=== PATIENT | female | born 1985 | race Hispanic/Latino ===

== ENCOUNTER 2023-06-09 11:10 | Emergency (ER) | payer BC ==
[2023-06-09] MEDS ORDERED: HYDROcodone/Acetaminophen 10/325 mg Tablet ONE (11:53)
[2023-06-09 12:31] LABS: #Basophils 0.1 thou/uL (0.0-0.2); #Eosinphils 0.2 thou/uL (0.0-0.7); #Monocytes 0.8 thou/uL (0.11-0.59); %Basophils 0.7 % (0.0-1.0); %Eosinophils 1.9 % (0.0-10.0); %Lymphocytes 20.8 % (21.0-51.0); %Monocytes 8.5 % (0.0-10.0); %Neutrophils 67.9 % (42.0-75.0); Hematocrit 38.3 % (36.0-47.0); Hemoglobin 13.3 g/dL (12.0-16.0); Mean Corpuscular HGB CONC 34.7 g/dL (32.0-36.0); Mean Corpuscular Hemoglobin 30.3 pg (27.0-31.0); Mean Corpuscular Volume 87.2 fl (78.0-98.0); Mean Platelet Volume 9.8 fL (7.4-10.4); Platelet Count 292 10x3/uL (130-400); RBC Distribution Width 12.4 % (11.5-14.5); Red Blood Cell (RBC) Count 4.39 mill/uL (4.20-5.40); White Blood Cell (WBC) Count 8.9 10x3/uL (4.8-10.8)
[2023-06-09 12:44] LABS: BHCG - Serum Negative (NEGATIVE)
[2023-06-09 12:45] LABS: Pregs Control Background? CLEAR/WHITE (CLR/WHITE); Pregs Control Bar Appear? YES (CONTROL BAR)
[2023-06-09 13:18] LABS: ALT (SGPT) 9 U/L (8-55); AST (SGOT) 12 U/L (5-34); Albumin 4.1 g/dL (3.5-5.0); Alkaline Phosphatase 57 U/L (40-110); Anion Gap 8 mmol/L (10-20); BUN (Urea Nitrogen) 6 mg/dL (7.0-18.7); Bilirubin, Total 0.7 mg/dL (0.2-1.2); Calc. Creatinine Clearance 0 mL/min (70-130); Calcium 9.3 mg/dL (7.6-10.4); Carbon Dioxide 24 mmol/L (22-29); Chloride 106 mmol/L (98-107); Estimated GFR 99; Globulin 2.9 g/dL (2.4-3.5); Glucose 99 mg/dL (70-105); Lipase 10 U/L (8-78); Sodium 134 mmol/L (136-145)
== END 2023-06-09 14:53 | disposition home or self-care (01) ==
LOC: ERS 11:10
DX: K80.20 Calculus of gallbladder without cholecystitis without obstruction (principal); R19.7 Diarrhea, unspecified
CPT/HCPCS: 36415; 76705; 80053; 83690; 84703; 85025

== ENCOUNTER 2023-06-10 15:18 | Observation (INO) | payer BC ==
[2023-06-10 15:48] LABS: #Basophils 0.1 thou/uL (0.0-0.2); #Eosinphils 0.2 thou/uL (0.0-0.7); #Monocytes 0.7 thou/uL (0.11-0.59); #Neutrophils 5.9 thou/uL (1.40-6.50); %Basophils 0.8 % (0.0-1.0); %Eosinophils 2.9 % (0.0-10.0); %Lymphocytes 17.4 % (21.0-51.0); %Monocytes 8.2 % (0.0-10.0); %Neutrophils 70.5 % (42.0-75.0); Hematocrit 41.4 % (36.0-47.0); Hemoglobin 14.3 g/dL (12.0-16.0); Mean Corpuscular HGB CONC 34.5 g/dL (32.0-36.0); Mean Corpuscular Hemoglobin 29.9 pg (27.0-31.0); Mean Corpuscular Volume 86.4 fl (78.0-98.0); Mean Platelet Volume 10.1 fL (7.4-10.4); Platelet Count 342 10x3/uL (130-400); RBC Distribution Width 12.3 % (11.5-14.5); Red Blood Cell (RBC) Count 4.79 mill/uL (4.20-5.40); White Blood Cell (WBC) Count 8.3 10x3/uL (4.8-10.8)
[2023-06-10] MEDS ORDERED: Morphine 4 MG/ML VIAL ONE ×2 (15:55→18:45)
[2023-06-10] MEDS ORDERED: Ondansetron PF 4 MG/2 ML Vial ONE (15:55)
[2023-06-10 16:04] LABS: BHCG - Serum Negative (NEGATIVE); Pregs Control Background? CLEAR/WHITE (CLR/WHITE); Pregs Control Bar Appear? YES (CONTROL BAR)
[2023-06-10 16:11] LABS: ALT (SGPT) 78 U/L (8-55); AST (SGOT) 105 U/L (5-34); Albumin 4.4 g/dL (3.5-5.0); Alkaline Phosphatase 136 U/L (40-110); Anion Gap 15 mmol/L (10-20); BUN (Urea Nitrogen) 5 mg/dL (7.0-18.7); Bilirubin, Total 1.8 mg/dL (0.2-1.2); Calc. Creatinine Clearance 0 mL/min (70-130); Calcium 9.7 mg/dL (7.8-10.44); Carbon Dioxide 23 mmol/L (22-29); Chloride 104 mmol/L (98-107); Estimated GFR 99; Globulin 3.3 g/dL (2.4-3.5); Glucose 106 mg/dL (70-105); Lipase 21 U/L (8-78); Potassium 3.8 mmol/L (3.5-5.1); Protein, Total 7.7 g/dL (6.0-8.3); Sodium 138 mmol/L (136-145)
[2023-06-10] MEDS ORDERED: diphenhydrAMINE 50 MG/ML VIAL ONE (20:01)
[2023-06-10 20:35] VITALS: BMI 38.6
[2023-06-10] MEDS ORDERED: Morphine 4 MG/ML VIAL SLOW IVP PRN (20:47)
[2023-06-10] MEDS ORDERED: Ondansetron ODT 4 MG TAB SL PRN (21:00)
[2023-06-10] MEDS ORDERED: Ondansetron PF 4 MG/2 ML Vial IVP PRN (21:00)
[2023-06-10] MEDS ORDERED: Sodium Chloride 0.9% 1,000 ML IV SCH (21:00)
[2023-06-10] MEDS ORDERED: diphenhydrAMINE 50 MG CAP PO PRN (23:46)
[2023-06-10] MEDS: fentaNYL 50 mcg/mL 1 mL Vial SLOW IVP PRN (23:55)
[2023-06-11] MEDS: fentaNYL 50 mcg/mL 1 mL Vial SLOW IVP PRN ×5 (01:54→10:16)
[2023-06-11] MEDS ORDERED: Promethazine HCl 25 MG/ML VIAL IM PRN (06:52)
[2023-06-11] MEDS ORDERED: Ondansetron PF 4 MG/2 ML Vial IVP PRN (06:52)
[2023-06-11] MEDS ORDERED: Morphine 4 MG/ML VIAL SLOW IVP PRN (06:52)
[2023-06-11] MEDS ORDERED: Morphine 2 MG/ML VIAL SLOW IVP PRN (06:52)
[2023-06-11 07:34] LABS: #Basophils 0.1 thou/uL (0.0-0.2); #Monocytes 0.7 thou/uL (0.11-0.59); %Basophils 0.6 % (0.0-1.0); %Eosinophils 0.5 % (0.0-10.0); %Lymphocytes 8.3 % (21.0-51.0); %Monocytes 8.5 % (0.0-10.0); %Neutrophils 81.8 % (42.0-75.0); Hematocrit 43.7 % (36.0-47.0); Hemoglobin 14.3 g/dL (12.0-16.0); Mean Corpuscular HGB CONC 32.7 g/dL (32.0-36.0); Mean Corpuscular Hemoglobin 29.5 pg (27.0-31.0); Mean Platelet Volume 9.9 fL (7.4-10.4); Platelet Count 322 10x3/uL (130-400); RBC Distribution Width 12.3 % (11.5-14.5); Red Blood Cell (RBC) Count 4.85 mill/uL (4.20-5.40); White Blood Cell (WBC) Count 8.6 10x3/uL (4.8-10.8)
[2023-06-11 07:58] LABS: Mean Corpuscular Volume 90.1 fl (78.0-98.0)
[2023-06-11] MEDS: Famotidine/PF 20 mg/2ml Vial SLOW IVP SCH ×2 (08:09→20:15)
[2023-06-11] MEDS: Sodium Chloride 0.9% 1,000 ML IV SCH ×2 (08:12→18:35)
[2023-06-11] MEDS: Ketorolac Tromethamine 30 MG/ML VIAL IVP SCH ×3 (12:41→23:46)
[2023-06-11] MEDS: metroNIDAZOLE 500 MG in Premix Bag 1 BAG IVPB SCH ×2 (12:42→20:15)
[2023-06-11] MEDS ORDERED: Bupivacaine PF 0.5% 30 ML VIAL ONE ×2 (13:10→15:03)
[2023-06-11] MEDS ORDERED: Iopamidol 30 ML ONE (13:10)
[2023-06-11] MEDS ORDERED: EPINEPHrine 1 MG/ML AMP ONE ×2 (13:10→15:03)
[2023-06-11] MEDS ORDERED: fentaNYL PF 100 MCG/2 ML SYRINGE ONE (13:32)
[2023-06-11] MEDS ORDERED: SUGAMMADEX SODIUM 200 MG/2 ML VIAL ONE (13:37)
[2023-06-11] MEDS ORDERED: Sevoflurane 250 ML INH ANEST BOTTLE ONE ×2 (13:37→14:27)
[2023-06-11] MEDS ORDERED: Rocuronium Bromide 10 MG/ML (10ML VIAL) ONE (13:48)
[2023-06-11] MEDS ORDERED: PROPOFOL 200 MG/20 ML VIAL ONE (13:48)
[2023-06-11] MEDS ORDERED: Ketorolac Tromethamine 30 MG/ML VIAL ONE (13:48)
[2023-06-11] MEDS ORDERED: Ondansetron PF 4 MG/2 ML Vial ONE (13:48)
[2023-06-11] MEDS ORDERED: Dexamethasone 20 MG/5 ML VIAL ONE (13:48)
[2023-06-11] MEDS ORDERED: fentaNYL 50 mcg/mL 1 mL Vial ONE ×2 (16:18→16:43)
[2023-06-11 18:54] LABS: ALT (SGPT) 174 U/L (8-55); AST (SGOT) 137 U/L (5-34); Alkaline Phosphatase 177 U/L (40-110); Anion Gap 18 mmol/L (10-20); BUN (Urea Nitrogen) 4 mg/dL (7.0-18.7); Bilirubin, Total 5.4 mg/dL (0.2-1.2); Calc. Creatinine Clearance 168 mL/min (70-130); Calcium 9.2 mg/dL (7.8-10.44); Carbon Dioxide 18 mmol/L (22-29); Chloride 105 mmol/L (98-107); Estimated GFR 115; Globulin 3.3 g/dL (2.4-3.5); Glucose 116 mg/dL (70-105); Potassium 4.1 mmol/L (3.5-5.1); Protein, Total 7.3 g/dL (6.0-8.3); Sodium 137 mmol/L (136-145)
[2023-06-12] MEDS: Sodium Chloride 0.9% 1,000 ML IV SCH ×2 (02:02→14:47)
[2023-06-12] MEDS: metroNIDAZOLE 500 MG in Premix Bag 1 BAG IVPB SCH ×3 (03:32→20:46)
[2023-06-12] MEDS: Ketorolac Tromethamine 30 MG/ML VIAL IVP SCH ×2 (05:18→11:31)
[2023-06-12 08:17] LABS: ALT (SGPT) 133 U/L (8-55); AST (SGOT) 92 U/L (5-34); Albumin 3.2 g/dL (3.5-5.0); Alkaline Phosphatase 133 U/L (40-110); Anion Gap 12 mmol/L (10-20); BUN (Urea Nitrogen) 5 mg/dL (7.0-18.7); Bilirubin, Total 4.3 mg/dL (0.2-1.2); Calc. Creatinine Clearance 181 mL/min (70-130); Calcium 8.3 mg/dL (7.8-10.44); Carbon Dioxide 20 mmol/L (22-29); Chloride 109 mmol/L (98-107); Estimated GFR 117; Globulin 2.4 g/dL (2.4-3.5); Glucose 95 mg/dL (70-105); Potassium 3.8 mmol/L (3.5-5.1); Protein, Total 5.6 g/dL (6.0-8.3); Sodium 137 mmol/L (136-145)
[2023-06-12] MEDS: Famotidine/PF 20 mg/2ml Vial SLOW IVP SCH ×2 (08:50→20:38)
[2023-06-12] MEDS ORDERED: PROPOFOL 200 MG/20 ML VIAL ONE (09:10)
[2023-06-12] MEDS ORDERED: Lidocaine 1% PF 5 ML VIAL ONE (09:10)
[2023-06-12] MEDS ORDERED: Dexamethasone 20 MG/5 ML VIAL ONE (09:10)
[2023-06-12] MEDS ORDERED: Succinylcholine 200 MG/10 ml SYRINGE FS ONE (09:10)
[2023-06-12] MEDS ORDERED: Ondansetron PF 4 MG/2 ML Vial ONE (09:10)
[2023-06-12] MEDS ORDERED: Indomethacin 50 MG SUPP ONE (09:26)
[2023-06-12] MEDS ORDERED: Iopamidol 30 ML ONE (09:32)
[2023-06-12] MEDS ORDERED: Iopamidol 15 ML ONE (09:51)
[2023-06-12] MEDS ORDERED: fentaNYL 50 mcg/mL 1 mL Vial ONE (09:51)
[2023-06-12] MEDS ORDERED: traMADol HCl 50 MG TAB PO PRN (14:25)
[2023-06-12] MEDS ORDERED: Ibuprofen 200 MG TAB PO PRN (14:26)
[2023-06-12] MEDS: Acetaminophen 500 MG TAB PO SCH ×2 (17:42→20:36)
[2023-06-12] MEDS: traMADol HCl 50 MG TAB PO SCH ×2 (18:11→23:17)
[2023-06-13] MEDS: metroNIDAZOLE 500 MG in Premix Bag 1 BAG IVPB SCH ×2 (03:42→12:04)
[2023-06-13] MEDS: Acetaminophen 500 MG TAB PO SCH ×2 (03:42→08:17)
[2023-06-13] MEDS: traMADol HCl 50 MG TAB PO SCH ×2 (06:10→11:46)
[2023-06-13 08:01] VITALS: TEMP 97.9
[2023-06-13] MEDS: Famotidine/PF 20 mg/2ml Vial SLOW IVP SCH (08:18)
[2023-06-13 08:19] LABS: ALT (SGPT) 217 U/L (8-55); AST (SGOT) 169 U/L (5-34); Albumin 3.1 g/dL (3.5-5.0); Alkaline Phosphatase 147 U/L (40-110); Bilirubin, Direct 1.9 mg/dL (0.1-0.3); Bilirubin, Total 2.3 mg/dL (0.2-1.2); Protein, Total 5.5 g/dL (6.0-8.3)
[2023-06-13 10:58] VITALS: BP 100/69
== END 2023-06-13 13:30 | disposition home or self-care (01) ==
LOC: ERS 15:18 → SJJU 19:01
PROVIDERS: ADMIT Surgery; ATTEND Surgery
PROC: 0FT44ZZ Resection of Gallbladder, Percutaneous Endoscopic Approach (ICD-10-PCS; 2023-06-10)
PROC: BF11YZZ Fluoroscopy of Biliary and Pancreatic Ducts using Other Contrast (ICD-10-PCS; principal; 2023-06-12)
DX: K80.66 Calculus of gallbladder and bile duct with acute and chronic cholecystitis without obstruction (principal); F41.8 Other specified anxiety disorders; Z79.899 Other long term (current) drug therapy; Z88.1 Allergy status to other antibiotic agents
CPT/HCPCS: 36415; 47532; 76705; 80053; 80076; 83605; 83690; 84703; 85025; 88304; 93005; 93010; 96361; 96365; 96366; 96367; 96375; 96376; C1713; C1889; G0378; J0171; J0744; J1100; J1200; J1885; J2270; J2272; J2405; J2704; J3010; J7050; Q9967; S0020; S0028